=== PATIENT | male | born 1935 | race Caucasian/White ===

== ENCOUNTER 2016-07-06 21:04 | Inpatient (IN) | payer MEDICARE ==
[~2016-07-06] VITALS: Ht 170.2 cm; Wt 65.3 kg
--- NOTE | 2016-07-06 21:10 | NUR ---
To bed 5 a 81 yo male bibra with c/o witnessed syncopal episode at home. Patient is aaox3, presented to er with shortness of breath, tachypneic, tachycardic at 120's, on room air O2 saturation is 78%. Dr Olivares at bedside and assessed patient, placed on nonrebreather mask to which patient responded well, O2 saturation went up to 98%. Patient reports that he has history of pulmonary fibrosis. fire sprinkler installer on. Initiated comfort measures. Kept hob elevated.
--- NOTE | 2016-07-06 21:23 | NUR ---
started a saline lock on the lac g18, blood drawn and sent to lab.
[2016-07-06] MEDS ORDERED: IV NS 0.9% 1,000 ML ONE (21:25)
[2016-07-06] MEDS ORDERED: IV SET PRIMARY 1 EA INFUS.SET MC ONE (21:25)
[2016-07-06] MEDS ORDERED: CEFTRIAXONE 1GM BAG (ER ONLY) 50 ML IV ONE ×2 (21:25→21:30)
[2016-07-06] MEDS ORDERED: IV SET PRIMARY PUMP SET 1 EA INFUS.SET MC ONE ×2 (21:25→21:58)
[2016-07-06 21:28] LABS: BASOPHILS # (AUTO) 0.1 /CMM (0.0-0.2); BASOPHILS % (AUTO) 0.6 % (0.0-2.0); EOSINOPHILS # (AUTO) 0.4 /CMM (0.0-0.7); EOSINOPHILS % (AUTO) 3.1 % (0.0-6.0); HEMATOCRIT 44 % (39-51); HEMOGLOBIN 14.8 g/dL (13.5-17.5); LYMPHOCYTES # (AUTO) 2.2 /CMM (0.8-4.8); MEAN CORPUSCULAR HEMOGLOBIN 32 PG (26.0-33.0); MEAN CORPUSCULAR HGB CONC 33 g/dl (31.0-36.0); MEAN CORPUSCULAR VOLUME 97 fL (80-96); MONOCYTES # (AUTO) 1.8 /CMM (0.1-1.30); MONOCYTES % (AUTO) 13.8 % (2.0-12.0); NEUTROPHILS # (AUTO) 8.2 /CMM (1.8-8.9); NEUTROPHILS % (AUTO) 65.5 % (43.0-81.0); PLATELET COUNT (AUTO) 183 /CMM (150-450); RDW COEFFICIENT OF VARIATION 13.4 (11.5-15.0); RED BLOOD CELL COUNT(AUTO) 4.57 MIL/uL (4.5-6.0); WHITE BLOOD COUNT (AUTO) 12.7 K/uL (4.3-11.0)
[2016-07-06] MEDS ORDERED: LEVOFLOXACIN 750 MG /D5W 150ML 150 ML IV ONE ×2 (21:30→21:58)
[2016-07-06] MEDS ORDERED: IV NS 0.9% 1,000 ML BAG IV ONE ×2 (21:30→23:30)
--- NOTE | 2016-07-06 21:30 | NUR ---
cxr at bedside.
[2016-07-06 21:40] LABS: CALCIUM, SERUM 9.1 mg/dL (8.5-10.1); CARBON DIOXIDE 32 mmol/L (21-32); CHLORIDE 96 mmol/L (98-107); CREATININE 1.6 mg/dL (0.6-1.3); GLUCOSE 131 mg/dL (74-106); POTASSIUM 4.7 mmol/L (3.5-5.1); SODIUM SERUM 134 mmol/L (136-145); UREA NITROGEN, BLOOD 23 mg/dL (7-18)
--- NOTE | 2016-07-06 21:40 | NUR ---
followed up with respiratory, abg order.
--- NOTE | 2016-07-06 21:47 | NUR ---
abg drawn by RT at bedside.
[2016-07-06 21:52] LABS: B-TYPE NATRIURETIC PEPTIDE 438 PG/ML (0-125); LACTIC ACID 3.4 mmol/L (0.4-2.0)
--- NOTE | 2016-07-06 21:55 | NUR ---
[facility] PAGED, DR. CABALLERO BORDER MEASURER AND CUTTER
[2016-07-06] MEDS ORDERED: FOLI-65 PO (22:00)
[2016-07-06] MEDS ORDERED: ASPI81TA2 PO (22:00)
[2016-07-06] MEDS ORDERED: NINT100C PO (22:00)
[2016-07-06] MEDS ORDERED: ESOM20CA PO (22:00)
[2016-07-06] MEDS ORDERED: LACT1CAP69 PO (22:00)
[2016-07-06 22:07] LABS: ABG OXYGEN SATURATION 99.3 % (92.0-98.5); ABG PCO2 38.9 mmHg (35.0-45.0); ABG PO2 318.5 mmHg (75.0-100.0); ABG TOTAL HEMOGLOBIN 13.3 G/dL (13.5-18.0); AaDO2 355.6 mmHg; COHb 0.8 % (0.5-1.5); MetHb 0.4 % (0.0-1.5); O2Hb 98.1 % (94.0-97.0); SITE, ABG Left Radial; VENT MODE, BG NRB 15L
--- NOTE | 2016-07-06 22:10 | NUR ---
[facility] REPAGED
[2016-07-06 22:40] VITALS: BP 151/86
--- NOTE | 2016-07-06 22:40 | NUR ---
Report given to Constance KAN for pamela.
--- NOTE | 2016-07-06 22:45 | NUR ---
Transported to [facility] room 108 under als protocol, no incident noted.
--- NOTE | 2016-07-06 22:45 | NUR ---
TELE-TD/BUTTON AND BUCKLE MAKER RECEIVED PT ACCOMPANIED BY ER STAFF TO BED 108. PT ON 10L SIMPLE MASK SATURATION WNL. ST ON TELE. BP STABLE AFEBRILE. LEFT AC #18 GAUGE IV INTACT RUNNING LEVAQUIN FROM ER. SKIN INTACT. PT GIVEN BED BATH PLACED IN HOSPITAL GOWN.ORIENTED TO ROOM AND CALL LIGHT USE. WILL CONTINUE TO MONITOR.
[2016-07-06 22:59] VITALS: BP 151/86
[2016-07-06] MEDS ORDERED: PIPERACILLIN /TAZOBACTAM 3.375 G VIAL IV ONE (23:13)
[2016-07-06] MEDS ORDERED: VANCOMYCIN 1 GM VIAL ONE (23:13)
[2016-07-06] MEDS ORDERED: IV D5W 250 ML IV ONE (23:13)
[2016-07-06] MEDS ORDERED: SECONDARY IV SET 1 EA INFUS.SET MC ONE (23:14)
[2016-07-06] MEDS ORDERED: IV D5W 50 ML IV ONE (23:14)
--- NOTE | 2016-07-06 23:27 | NUR ---
MED NOTE: ALL ABX ADMINISTERED UNDER UNVERIFIED DOSE.
[2016-07-06] MEDS ORDERED: LORAZEPAM INJ 2 MG/ML VIAL IVP PRN (23:30)
[2016-07-06] MEDS ORDERED: MORPHINE SULFATE INJ 2 MG/ML DISP.SYRIN IV PRN (23:30)
[2016-07-06] MEDS ORDERED: VANCOMYCIN 1 GM in IV D5W 250 ML IV ONE (23:30)
[2016-07-06] MEDS ORDERED: ACETAMINOPHEN 325 MG TABLET PO PRN (23:30)
[2016-07-06] MEDS ORDERED: ONDANSETRON HCL/PF 4 MG/2 ML VIAL IVP PRN (23:30)
[2016-07-06] MEDS: PIPERACILLIN /TAZOBACTAM 3.375 G in IV D5W 50 ML IV SCH (23:40)
[2016-07-06 23:42] LABS: BILIRUBIN,DIRECT 0.1 mg/dL (0.0-0.2); BILIRUBIN,TOTAL 0.4 mg/dL (0.2-1.0)
[2016-07-06 23:43] LABS: TOTAL PROTEIN, SERUM 7.3 g/dL (6.4-8.2)
[2016-07-06 23:46] LABS: LACTIC ACID REFLEX 1.5 mmol/L (0.4-1.9)
[2016-07-07] VITALS: BP_SYST 109; BP_DIAS 77; BP_DIAS 99
--- NOTE | 2016-07-07 00:18 | NUR ---
TELE-TD/E D TECH SEPSIS RE-ASSESSMENT DATA RELAYED TO DR. CABALLERO. NO NEW ORDERS. WILL CONTINUE TO MONITOR.
[2016-07-07 04:00] VITALS: BP 94/68
[2016-07-07] MEDS ORDERED: PIPERACILLIN /TAZOBACTAM 3.375 G VIAL IV ONE (04:59)
[2016-07-07] MEDS ORDERED: IV D5W 50 ML IV ONE (05:02)
[2016-07-07] MEDS: PIPERACILLIN /TAZOBACTAM 3.375 G in IV D5W 50 ML IV SCH ×3 (05:15→17:08)
[2016-07-07 06:28] LABS: INR 1.17 (0.87-1.13); PROTHROMBIN TIME 12.6 SECS (9.5-12.7)
[2016-07-07 06:35] LABS: ALBUMIN 2.5 g/dL (3.4-5.0); BILIRUBIN,TOTAL 0.6 mg/dL (0.2-1.0); CALCIUM, SERUM 7.7 mg/dL (8.5-10.1); CREATININE 1.4 mg/dL (0.6-1.3); POTASSIUM 5.5 mmol/L (3.5-5.1); TOTAL PROTEIN, SERUM 6.5 g/dL (6.4-8.2)
[2016-07-07 06:42] LABS: CREATINE KINASE MB 1.8 ng/mL (0-3.6)
[2016-07-07 08:00] VITALS: BP 114/75
--- NOTE | 2016-07-07 08:00 | NUR ---
[facility]/RN: PT RECEIVED, SITTING IN BED, A&OX4, ON O2 10L/MIN VIA MASK, BREATHING EVEN AND UNLABORED, NO DISTRESS NOTED. PLACED ON 4L/MIN VIA NC. TOLERATING WELL SPO2 >97%. DENIES CP, LUNGS SOUND DIMINISHED. IV HL PATENT AND INTACT. ORIENTED PT TO POC, UNIT. VERBALIZED UNDERSTANDING. WILL CONT TO MONITOR PT STATUS.
[2016-07-07] MEDS: PANTOPRAZOLE 40 MG VIAL IV SCH (08:34)
[2016-07-07] MEDS: ASPIRIN 81 MG TAB.CHEW PO SCH (08:34)
[2016-07-07] MEDS ORDERED: FEE PK DOSING 1 MIN EA MC ONE (08:48)
[2016-07-07 12:00] VITALS: BP 95/63
[2016-07-07] MEDS: LACTOBACILLUS RHAMNOSUS GG 1 EACH CAP.SPRINK PO SCH (12:35)
[2016-07-07] MEDS ORDERED: SODIUM POLYSTYRENE SULFONATE 15 G/60 ML BOTTLE PO ONE (13:00)
--- NOTE | 2016-07-07 14:05 | NUR ---
nurse to speak to Md regarding the exam
[2016-07-07 16:00] VITALS: BP_SYST 109; BP_SYST 95; BP_DIAS 63; BP_DIAS 70
--- NOTE | 2016-07-07 16:30 | NUR ---
[facility]/RN: RACHELLE EPPERSON, ENTERTAINMENT LAWYER AT THE BEDSIDE. UPDATED ON PT STATUS; MADE AWARE OF L ANKLE SWELLING AND ERYTHEMA, PT HAS HAD HARDWARE PLACED IN L ANKLE. NOTIFIED OF NEED FOR DVT PROPHYLAXIS, PER ENTERTAINMENT LAWYER, "OK I'LL LOOK INTO IT."
[2016-07-07] MEDS ORDERED: IV SET PRIMARY PUMP SET 1 EA INFUS.SET MC ONE (16:56)
[2016-07-07] MEDS: VANCOMYCIN 1 GM in IV D5W 250 ML IV SCH (17:08)
[2016-07-07] MEDS: MEGESTROL ACETATE SUSP 400 MG/10 ML UDC PO SCH (17:09)
[2016-07-07 18:05] LABS: APPEARANCE,URINE CLEAR (CLEAR); BILIRUBIN,URINE NEGATIVE (NEGATIVE); BLOOD, URINE NEGATIVE Ery/uL (NEGATIVE); COLOR,URINE YELLOW (YELLOW); KETONES,URINE NEGATIVE (NEGATIVE); LEUKOCYTE ESTERASE ,URINE NEGATIVE (NEGATIVE); NITRITE, URINE NEGATIVE (NEGATIVE); PH,URINE 8.5 (5.0-8.0); PROTEIN,URINE 1+ mg/dl (NEGATIVE); UGLUCOSE NEGATIVE (NEGATIVE); UROBILINOGEN,URINE 0.2 EU/dL (0.2)
[2016-07-07 18:14] LABS: ADD URINE CULTURE NO; BACTERIA,URINE None seen /HPF (None Seen); RBC,URINE NONE SEEN /HPF (0-2); SQUAMOUS EPITHELIAL CELL,UR Few /HPF (None Seen); WBC,URINE NONE SEEN /HPF (0-3)
[2016-07-07 18:19] LABS: CREATININE, URINE 51.4 MG/DL (30.0-125.0)
--- NOTE | 2016-07-07 19:03 | NUR ---
[facility]/RN: PT SITTING IN BED, ON PHONE, NO DISTRESS NOTED. ONGOING INFUSION OF ABX. CARE ENDORSED TO PM RN FOR CRISTIAN.
[2016-07-07 20:00] VITALS: BP 97/63
[2016-07-08] VITALS: BP 138/73
[2016-07-08] MEDS: PIPERACILLIN /TAZOBACTAM 3.375 G in IV D5W 50 ML IV SCH ×5 (00:17→23:45)
--- NOTE | 2016-07-08 01:00 | NUR ---
RN:TD: ENDORSED CARE TO AAMIR. PT RESTING COMFORTABLY WITH OUT DISTRESS.
--- NOTE | 2016-07-08 01:10 | NUR ---
[facility] RN NOTES RECEIVED CONTINUITY OF CARE FROM HEVER. PATIENT RESTING COMFORTABLY. NO RESPIRATORY DISTRESS NOTED. ON 3LPMO2 VIA NC. PATIENT DENIES SOB. DENIES PAIN OR DISCOMFORT. SKIN WARM AND DRY TO TOUCH. ON TELE MONITOR SR WITH OCC PVCS. SIDE RAILS UP AND LOCKED. BED KEPT AT LOWEST POSITION. CALL LIGHT KEPT WITHIN EASY REACH. WILL CONTINUE TO MONITOR.
[2016-07-08 04:00] VITALS: BP 120/80
--- NOTE | 2016-07-08 06:53 | NUR ---
[facility] RN CLOSING NOTES NO SIGNIFICANT CHANGES OVERNIGHT. NO RESPIRATORY DISTRESS NOTED. DENIES SOB, ON 3LPMO2 VIA NC. DENIES PAIN OR DISCOMFORT. ALL NEEDS ANTICIPATED AND MET. SIDE RAILS UP AND LOCKED. BED KEPT AT LOWEST POSITION. CALL LIGHT KEPT WITHIN EASY REACH. WILL ENDORSE CONTINUITY OF CARE TO AM NURSE.
--- NOTE | 2016-07-08 07:51 | NUR ---
[facility] RN NOTE PTINT IN BED , ALL NEEDS ATTENDED, ON 3L NC SAT 96% NO SOB NOTED AT THIS TIME , BED IN LOWEST AND LOCKED POSITION , CALL LIGHT WITHIN REACH WITH DVT PUMPS ORDERED , LT AC GUILLERMO 18 INTACT , NO \S\S ] INFECTION NOTED . PLAN OF CARE DISUSED WITH PATIENT , ASSISTED TO BR, ABLE TO URINATE WELL WILL CONT TO MONITOR CLOSELY , NO SOB NOTED AT THIS TIME ON TELE MONITOR SR 80
[2016-07-08 08:00] VITALS: BP 127/80
[2016-07-08] MEDS: ASPIRIN 81 MG TAB.CHEW PO SCH (08:02)
[2016-07-08] MEDS: MULTIPLE VIT/MINERALS 1 EA TABLET PO SCH (08:02)
[2016-07-08] MEDS: LACTOBACILLUS RHAMNOSUS GG 1 EACH CAP.SPRINK PO SCH (08:02)
[2016-07-08] MEDS: PANTOPRAZOLE 40 MG VIAL IV SCH (08:02)
[2016-07-08] MEDS: MEGESTROL ACETATE SUSP 400 MG/10 ML UDC PO SCH ×2 (08:02→17:09)
[2016-07-08 08:06] LABS: CALCIUM, SERUM 8.3 mg/dL (8.5-10.1); CREATININE 1.5 mg/dL (0.6-1.3); MAGNESIUM 2.1 mg/dL (1.8-2.4); PHOSPHORUS 3.1 mg/dL (2.5-4.9); POTASSIUM 4.4 mmol/L (3.5-5.1)
[2016-07-08 08:27] LABS: BASOPHILS % (AUTO) 0.4 % (0.0-2.0); EOSINOPHILS # (AUTO) 0.8 /CMM (0.0-0.7); EOSINOPHILS % (AUTO) 8.5 % (0.0-6.0); HEMATOCRIT 40 % (39-51); HEMOGLOBIN 12.8 g/dL (13.5-17.5); LYMPHOCYTES # (AUTO) 1.9 /CMM (0.8-4.8); MEAN CORPUSCULAR HEMOGLOBIN 31 PG (26.0-33.0); MEAN CORPUSCULAR HGB CONC 32 g/dl (31.0-36.0); MEAN CORPUSCULAR VOLUME 97 fL (80-96); MONOCYTES # (AUTO) 1.9 /CMM (0.1-1.30); MONOCYTES % (AUTO) 19.4 % (2.0-12.0); NEUTROPHILS # (AUTO) 4.9 /CMM (1.8-8.9); NEUTROPHILS % (AUTO) 51.7 % (43.0-81.0); PLATELET COUNT (AUTO) 173 /CMM (150-450); RDW COEFFICIENT OF VARIATION 14.8 (11.5-15.0); RED BLOOD CELL COUNT(AUTO) 4.09 MIL/uL (4.5-6.0); WHITE BLOOD COUNT (AUTO) 9.6 K/uL (4.3-11.0)
--- NOTE | 2016-07-08 09:26 | NUR ---
[facility] RN NOTE LT ANKLE X RAY DONE ORDERED
--- NOTE | 2016-07-08 11:00 | NUR ---
[facility] RN NOTE CT CHEST DONE ORDERED ,
[2016-07-08 11:16] LABS: EOSINOPHILS % (MANUAL) 9 % (0-4); LYMPHOCYTES % (MANUAL) 20 % (16-48); MONOCYTES % (MANUAL) 24 % (0-11.0); NEUTROPHILS % (MANUAL) 47 (42-76)
[2016-07-08 11:17] LABS: PLATELET ESTIMATE ADEQU
[2016-07-08 12:00] VITALS: BP 93/70
[2016-07-08] MEDS: VANCOMYCIN 1 GM in IV D5W 250 ML IV SCH (12:32)
--- NOTE | 2016-07-08 14:30 | NUR ---
[facility] RN NOTE US OF KIDNEY DONE ORDERED
--- NOTE | 2016-07-08 15:39 | NUR ---
[facility] RN NOTE NEW HL ON LT FA INSERTED WITH GOD BLOOD RETURN NOTED
[2016-07-08 16:00] VITALS: BP 133/80
--- NOTE | 2016-07-08 18:44 | NUR ---
[facility] RN NOTE HAVING DINNER , ABLE TO EAT SELF, ALL NEEDS ATTENDED NOT IN ACUTE DISTRESS, WILL CONT TO MONITOR CLOSELY
--- NOTE | 2016-07-08 19:30 | NUR ---
[facility] RN INITIAL NOTES RECEIVED PATIENT AWAKE A/OX4 ABLE TO MAKE NEEDS KNOWN. DENIES PAIN OR DISCOMFORT. DENIES SOB WITH 3LPMO2 VIA NC. SKIN WARM AND DRY TO TOUCH. WITH LFA 22G PATENT AND INTACT. ON TELE MONITOR SINUS TACH 101. HOB ELEVATED. SIDE RAILS UP AND LOCKED. BED KEPT AT LOWEST POSITION. CALL LIGHT KEPT WITHIN EASY REACH. WILL CONTINUE TO MONITOR.
[2016-07-08 20:00] VITALS: BP 115/76
[2016-07-09] VITALS: BP 114/78
[2016-07-09 04:00] VITALS: BP 108/71
[2016-07-09] MEDS: PIPERACILLIN /TAZOBACTAM 3.375 G in IV D5W 50 ML IV SCH (05:24)
[2016-07-09 05:48] LABS: CALCIUM, SERUM 8.4 mg/dL (8.5-10.1); CREATININE 1.5 mg/dL (0.6-1.3); MAGNESIUM 2.1 mg/dL (1.8-2.4); PHOSPHORUS 3.3 mg/dL (2.5-4.9); POTASSIUM 4.6 mmol/L (3.5-5.1)
[2016-07-09 06:06] LABS: BASOPHILS % (AUTO) 0.4 % (0.0-2.0); EOSINOPHILS # (AUTO) 0.7 /CMM (0.0-0.7); HEMATOCRIT 42 % (39-51); HEMOGLOBIN 13.3 g/dL (13.5-17.5); LYMPHOCYTES % (AUTO) 21.9 % (20.0-44.0); MEAN CORPUSCULAR HEMOGLOBIN 31 PG (26.0-33.0); MEAN CORPUSCULAR HGB CONC 32 g/dl (31.0-36.0); MEAN CORPUSCULAR VOLUME 97 fL (80-96); MONOCYTES # (AUTO) 1.8 /CMM (0.1-1.30); MONOCYTES % (AUTO) 19.9 % (2.0-12.0); NEUTROPHILS # (AUTO) 4.6 /CMM (1.8-8.9); NEUTROPHILS % (AUTO) 49.8 % (43.0-81.0); PLATELET COUNT (AUTO) 196 /CMM (150-450); RDW COEFFICIENT OF VARIATION 14.6 (11.5-15.0); RED BLOOD CELL COUNT(AUTO) 4.28 MIL/uL (4.5-6.0); WHITE BLOOD COUNT (AUTO) 9.1 K/uL (4.3-11.0)
[2016-07-09] MEDS: VANCOMYCIN 1 GM in IV D5W 250 ML IV SCH (06:27)
--- NOTE | 2016-07-09 06:28 | NUR ---
[facility] RN CLOSING NOTES NO SIGNIFICANT CHANGES OVERNIGHT. NO SOB. NO RESPIRATORY DISTRESS NOTED. NO C/O PAIN OR DISCOMFORT. SKIN WARM AND DRY TO TOUCH. ALL NEEDS ANTICIPATED AND MET. SINUS RHYTHM ON TELE MONITOR. SLEPT WELL THROUGH THE NIGHT. IV PATENT AND INTACT. SIDE RAILS UP AND LOCKED. BED KEPT AT LOWEST POSITION. CALL LIGHT KEPT WITHIN EASY REACH. WILL ENDORSE CONTINUITY OF CARE TO AM NURSE.
[2016-07-09 07:39] LABS: EOSINOPHILS % (MANUAL) 12 % (0-4); LYMPHOCYTES % (MANUAL) 26 % (16-48); MONOCYTES % (MANUAL) 9 % (0-11.0); NEUTROPHILS % (MANUAL) 53 (42-76); PLATELET ESTIMATE ADEQUATE
--- NOTE | 2016-07-09 07:43 | NUR ---
ICU/RN INITIAL NOTES,AM RECEIVED BEDSIDE REPORT FROM NIGHT NURSE. PT RESTING COMFORTABLY. EASILY AROUSED, AAOX4, ON NASAL CANULA, NO ACUTE DISTRESS NOTED. PT ON TELE, SINUS. URINAL AT BEDSIDE, INSTRUCTED TO USE CALL LIGHT WHEN AND IF NEEDED TO GET OUT OF BED. PT ON CARDIAC DIET. LEFT FA IV PATENT AND INTACT, NO S/S OF INFECTION OR INFILTRATION NOTED. ALL NEEDS WILL BE MET, SAFETY MEASURES TAKEN, BED IN LOW POSITION, SIDE RAILS UP APPROPRIATE, CALL LIGHT WITHIN REACH. WILL CONTINUE CARE.
[2016-07-09 08:00] VITALS: BP 110/78
[2016-07-09] MEDS: PANTOPRAZOLE 40 MG VIAL IV SCH (08:34)
[2016-07-09] MEDS: MULTIPLE VIT/MINERALS 1 EA TABLET PO SCH (08:34)
[2016-07-09] MEDS: ASPIRIN 81 MG TAB.CHEW PO SCH (08:34)
[2016-07-09] MEDS: MEGESTROL ACETATE SUSP 400 MG/10 ML UDC PO SCH ×2 (08:34→17:00)
[2016-07-09] MEDS: LACTOBACILLUS RHAMNOSUS GG 1 EACH CAP.SPRINK PO SCH (08:34)
[2016-07-09] MEDS ORDERED: predniSONE 20 MG TABLET PO SCH (10:00)
--- NOTE | 2016-07-09 11:23 | NUR ---
ICU/RN: FRANNIE, LINUX KERNEL DEVELOPER, JOSE ELIAS GOODMAN NP AND BARBARA, DEPUTY PROSECUTING ATTORNEY AT BEDSIDE HELPING THE PT FORM ADVANCE DIRECTIVE PRIOR TO DISCHARGE.
[2016-07-09 12:00] VITALS: BP 127/82
--- NOTE | 2016-07-09 12:06 | NUR ---
SW received a call from WALKER Castañeda stating that pt. and his son would like to complete a POLST. SW met with pt., his son Mikael and WALKER Castañeda to discuss and complete POLST. Pt. would like to continue to be full code. POLST was completed and signed up WALKER CASTAÑEDA and patient. Copy of POLST was placed in chart and original given to pt's son Mikael.
[2016-07-09 16:00] VITALS: BP 121/77
[2016-07-09 16:07] VITALS: BP 121/77
--- NOTE | 2016-07-09 17:32 | NUR ---
ICU/RN: EXIT CARE DONE, FORMS SIGNED, PRESCRIPTION GIVEN TO PT WHO IS ACCOMPANIED BY SON. NO WOUNDS THEREFORE NO PHOTOS NEEDED. PATIENTS PERSONAL MEDICATION RETRIEVED FROM PHARMACY AND SENT HOME WITH PATIENT. ALL BELONGINGS SENT WITH PT, FORM SIGNED. PIV REMOVED, NO S/S OF BLEEDING NOTED. VSS, ALL QUESTIONS ANSWERED. PT TAKEN OUT TO CAR VIA WHEELCHAIR ON OXYGEN, SINCE PT IS ALWAYS ON OXYGEN, HAS PORTABLE 02 WITH THEM. TAKEN OUT BY SCRAP CRANE OPERATOR.
== END 2016-07-09 17:25 | disposition home or self-care (01) | DRG 871 ==
LOC: ER 21:07 → TELE-TD 22:34
PROVIDERS: ADMIT Internal Medicine; ATTEND Internal Medicine
DX: A41.9 Sepsis, unspecified organism (principal); J96.21 Acute and chronic respiratory failure with hypoxia; M48.50XA Collapsed vertebra, not elsewhere classified, site unspecified, initial encounter for fracture; N17.9 Acute kidney failure, unspecified; T85.698A Other mechanical complication of other specified internal prosthetic devices, implants and grafts, initial encounter; Z99.81 Dependence on supplemental oxygen; J84.10 Pulmonary fibrosis, unspecified; M19.90 Unspecified osteoarthritis, unspecified site; N18.9 Chronic kidney disease, unspecified; I12.9 Hypertensive chronic kidney disease with stage 1 through stage 4 chronic kidney disease, or unspecified chronic kidney disease; K21.9 Gastro-esophageal reflux disease without esophagitis; M85.80 Other specified disorders of bone density and structure, unspecified site; M25.572 Pain in left ankle and joints of left foot; E87.5 Hyperkalemia; J47.9 Bronchiectasis, uncomplicated; J84.112 Idiopathic pulmonary fibrosis; K44.9 Diaphragmatic hernia without obstruction or gangrene; Z79.82 Long term (current) use of aspirin
CPT/HCPCS: 36415; 36600; 71010-TC; 71250-TC; 73610-TC; 76770-TC; 80048-TC; 80053-TC; 80076-TC; 80202-TC; 81000-TC; 82247-TC; 82248-TC; 82553-TC; 82570-TC; 83605-TC; 83735-TC; 83880; 84100-TC; 84300-TC; 85025-TC; 85378-TC; 85610-TC; 85730-TC; 87040-TC; 87081-TC; 87086-TC; 93307-TC; 94799-TC; A4606; A6402; C9113; J0696; J1956; J2543; J3370; J7030; J7060; Z7610